=== PATIENT | female | born 1970 | race Caucasian/White ===

== ENCOUNTER 2016-04-20 14:33 | Emergency (ER) | payer OTHER ==
[~2016-04-20 14:33] MED LIST: ALBUTEROL17 GM INH; AMITRYPTYLINE PO; AMOXIL500 MG PO; BENZTROPINE MESY1 MG PO; BUSPAR PO; COGENTIN PO; CYMBALTA PO; IBUPROFEN PO; MUCINEX DM1 TAB.SR . PO; NEURONTIN PO; PEN-VEE K PO; PHENERGAN PO; PREDNISONE PO; PROZAC PO; RISPERIDONE PO; RONDEC-DM ORAL30 ML PO; TRAZODONE PO; TYLENOL #3 PO; TYLENOL SINUS; ULTRAM PO; VICODIN 5/1 TAB 5/50 PO; ZITHROMAX PO
== END 2016-04-20 17:36 | disposition home or self-care (01) ==
LOC: CED 14:33
DX: N75.1 Abscess of Bartholin's gland (principal); N75.0 Cyst of Bartholin's gland; I10 Essential (primary) hypertension; E78.5 Hyperlipidemia, unspecified; J44.9 Chronic obstructive pulmonary disease, unspecified; F17.210 Nicotine dependence, cigarettes, uncomplicated; Z86.19 Personal history of other infectious and parasitic diseases
CPT/HCPCS: 56420; 96372; 99283; J2270